=== PATIENT | female | born 1995 | race Caucasian/White ===

== ENCOUNTER 2018-04-11 08:07 | Emergency (ER) | payer OTHER ==
--- NOTE | 2018-04-11 09:48 | ED Physician Documentation ---
PD HPI HEADACHE - Stated complaint Stated Complaint: HEADACHE - Chief complaint Chief Complaint: Neuro - History obtained from History obtained from: Patient, Family - History of Present Illness Timing - onset: Yesterday Timing - onset during: Rest Timing - duration: Days (1) Timing - details: Gradual onset, Still present Location: Right Quality: Throbbing, Aching Associated symptoms: Stiff neck, Nausea, Eye pain, Other (ringing in the right ear and sensitivity to the skin of the scalp). No: Fever, Weakness, Numbness, Syncope, Seizure, Vision changes Improved by: Rest, Quiet, Meds Worsened by: Light, Noise, Moving Contributing factors: No: Anticoagulated Similar symptoms before: Has not had sx before Recently seen: Other - Additional information Additional information: 22-year-old female who is 12 weeks has developed a headache yesterday on the right side of her head. She is complaining of some ringing in the right ear and pain in the right side of the head which appears to be emanating from her neck on the right side. She does have an area at the insertion of the trapezius into the occiput of tenderness. She has some relief with the use of Tylenol but the headache is persisted. She states that she has had an ultrasound done with this and she is seeking care in [place]. She has had a reconstructive surgery on the right ear previously she has had a number of infections she does not feel that the symptoms are anything like infection. Review of Systems Constitutional: denies: Fever, Chills, Myalgias, Fatigue, Sweats Eyes: denies: Decreased vision Ears: reports: Tinnitus/ringing. denies: Ear pain Nose: denies: Rhinorrhea / runny nose, Congestion Throat: denies: Sore throat Cardiac: denies: Chest pain / pressure, Palpitations Respiratory: denies: Dyspnea, Cough GI: reports: Nausea. denies: Abdominal Pain, Vomiting, Constipation, Diarrhea : denies: Dysuria, Frequency Skin: denies: Rash Musculoskeletal: reports: Neck pain. denies: Back pain, Extremity pain Neurologic: reports: Headache. denies: Generalized weakness, Focal weakness, Numbness, Head injury, LOC PD PAST MEDICAL HISTORY - Past Medical History Cardiovascular: None Respiratory: None Endocrine/Autoimmune: None GI: None SPECIAL SERVICE REPRESENTATIVE: None : None HEENT: None Psych: None Musculoskeletal: None Derm: None - Past Surgical History Past Surgical History: Yes General: Appendectomy HEENT: Myringotomy (tubes) - Present Medications Home Medications: Ambulatory Orders Medication Instructions Recorded Confirmed Pnv95/Ferrous Fumarate/FA 1 tab PO DAILY 08/27/14 08/27/14 [ Tablet] Fluticasone [Flonase] 1 sprays PATRICIA BID PRN #1 bottle 04/30/16 HYDROcod/ACETAM 5/325 [Mcdavid 5/325] 1 - 2 ea PO Q6H PRN #15 tablet 04/11/18 - Allergies Allergies/Adverse Reactions: Allergies Allergy/AdvReac Type Severity Reaction Status Date / Time No Known Drug Allergies Allergy Verified 04/30/16 04:14 - Social History Does the pt smoke?: No Smoking Status: Never smoker Does the pt drink ETOH?: No Does the pt have substance abuse?: No - Immunizations Immunizations are current?: Yes - POLST Patient has POLST: No PD ED PE NORMAL - Vitals Vital signs reviewed: Yes (normal ) - General General: Alert and oriented X 3, No acute distress, Well developed/nourished - HEENT HEENT: Atraumatic, PERRL, EOMI, Other (There is extensive R tympanosclerosis without evidence of inflamation to the TM. The left is clear with less scarring. ) - Neck Neck: Supple, no meningeal sign, No bony TTP, Other (There is point tenderness and dense spasm to the trapezius at the insertion to the occiput on the right side. massage of this area improves symptoms ) - Cardiac Cardiac: RRR, No murmur - Respiratory Respiratory: No respiratory distress, Clear bilaterally - Abdomen Abdomen: Soft, Non tender - Back Back: No CVA TTP, No spinal TTP - Derm Derm: Normal color, Warm and dry, No rash - Extremities Extremities: No deformity, No edema - Neuro Neuro: Alert and oriented X 3, belly dancer 2-12 intact, No motor deficit, No sensory deficit, Normal speech Eye Opening: Spontaneous Motor: Obeys Commands Verbal: Oriented GCS Score: 15 - Psych Psych: Normal mood, Normal affect Results - Vitals Vitals: Vital Signs - 24 hr 04/11/18 04/11/18 08:25 10:31 Temperature 36.3 C L Heart Rate 81 78 Respiratory 16 14 Rate Blood Pressure 95/62 105/65 O2 Saturation 98 99 Oxygen O2 Source Room air - Labs Labs: Laboratory Tests 04/11/18 10:15 Urine Color YELLOW Urine Clarity CLEAR Urine pH 8.0 H Ur Specific [place] 1.010 Urine Protein NEGATIVE Urine Glucose (UA) NEGATIVE Urine Ketones NEGATIVE Urine Occult Blood NEGATIVE Urine Nitrite NEGATIVE Urine Bilirubin NEGATIVE Urine Urobilinogen 0.2 (NORMAL) Ur Leukocyte Esterase NEGATIVE Ur Microscopic Review NOT INDICATED Urine Culture Comments NOT INDICATED PD MEDICAL DECISION MAKING - ED course Complexity details: reviewed results, re-evaluated patient, considered differential, d/w patient, d/w family ED course: 22-year-old female with a headache that appears to be related to the greater occipital nerve on the right side has significant spasm of the trapezius. She is 12 weeks and conservative therapy is indicated. - Sepsis Event Vital Signs: Vital Signs - 24 hr 04/11/18 04/11/18 08:25 10:31 Temperature 36.3 C L Heart Rate 81 78 Respiratory 16 14 Rate Blood Pressure 95/62 105/65 O2 Saturation 98 99 Oxygen O2 Source Room air Departure - Departure Disposition: 01 Home, Self Care Clinical Impression: Tension headache Condition: Stable Instructions: ED Headache Tension Follow-Up: [facility] [Provider Group] Prescriptions: HYDROcod/ACETAM 5/325 [Mcdavid 5/325] 1 - 2 ea PO Q6H PRN #15 tablet PRN Reason: Pain Comments: Today it appears your headache is originating from the right side of your neck where the trapezius inserts into the occiput. Massaging anything to do relaxing the muscle will help with this headache. Use the pain medication as needed and when you are taking that do not take additional Tylenol. Discharge Date/Time: 04/11/18 10:32
[2018-04-11 10:19] LABS: BILIRUBIN,URINE NEGATIVE (NEGATIVE); GLUCOSE, URINE (UA) NEGATIVE (NEGATIVE); KETONES,URINE (UA) NEGATIVE (NEGATIVE); LEUKOCYTE ESTERASE, URINE NEGATIVE (NEGATIVE); NITRITE,URINE NEGATIVE (NEGATIVE); OCCULT BLOOD,URINE NEGATIVE (NEGATIVE); PROTEIN,URINE NEGATIVE (NEGATIVE); UROBILINOGEN,URINE 0.2 (NORMAL) E.U./dL (NORMAL)
[2018-04-11 10:21] LABS: CLARITY,URINE CLEAR (CLEAR)
[2018-04-11 10:32] VITALS: BP 105/65
== END 2018-04-11 10:32 | disposition home or self-care (01) ==
LOC: ED 08:07
DX: O26.891 Other specified pregnancy related conditions, first trimester (principal); G44.209 Tension-type headache, unspecified, not intractable; Z3A.12 12 weeks gestation of pregnancy
CPT/HCPCS: 81001; 81003; 87086; 99283

== ENCOUNTER 2018-04-28 08:00 | Outpatient (CLI) | payer OTHER ==
[2018-04-28 16:29] LABS: MUDS CUTOFF CONCENTRATIONS CUTOFF CONC BELOW:
[2018-04-28 16:51] LABS: AMPHETAMINE SCREEN,URINE NEGATIVE (NEGATIVE); BENZODIAZEPINES SCREEN, URINE NEGATIVE (NEGATIVE); COCAINE SCREEN URINE NEGATIVE (NEGATIVE); METHADONE SCREEN, URINE NEGATIVE (NEGATIVE); METHAMPHETAMINES SCREEN, URINE NEGATIVE (NEGATIVE); OPIATE SCREEN, URINE NEGATIVE (NEGATIVE); OXYCODONE SCREEN, URINE NEGATIVE (NEGATIVE); TRICYCLIC ANTIDEPRESSANT,URINE NEGATIVE (NEGATIVE)
[2018-04-28 16:52] LABS: PROPOXYPHENE SCREEN, URINE NEGATIVE (NEGATIVE)
== END 2018-04-28 08:01 | disposition home or self-care (01) ==
LOC: LAB.R 08:00
PROVIDERS: ATTEND Nurse Practitioner Obstetrics & Gynecology
DX: Z36.9 Encounter for antenatal screening, unspecified (principal)
CPT/HCPCS: 80306; 87491; 87591

== ENCOUNTER 2018-04-28 13:15 | Outpatient (CLI) | payer OTHER ==
[2018-04-28 19:56] LABS: BILIRUBIN,URINE NEGATIVE (NEGATIVE); GLUCOSE, URINE (UA) NEGATIVE (NEGATIVE); KETONES,URINE (UA) NEGATIVE (NEGATIVE); LEUKOCYTE ESTERASE, URINE NEGATIVE (NEGATIVE); NITRITE,URINE NEGATIVE (NEGATIVE); OCCULT BLOOD,URINE NEGATIVE (NEGATIVE); PH,URINE 6.5 PH (5.0-7.5); PROTEIN,URINE NEGATIVE (NEGATIVE); UROBILINOGEN,URINE 0.2 (NORMAL) E.U./dL (NORMAL)
[2018-04-28 20:01] LABS: BASOPHILS % (AUTO) 0.3 %; EOSINOPHILS % (AUTO) 0.5 %; HGB - HEMOGLOBIN 12.9 g/dL (12.0-16.0); LYMPHOCYTES # (AUTO) 1.5 10^3/uL (1.5-3.5); LYMPHOCYTES % (AUTO) 19.2 %; MEAN CORPUSCULAR HEMOGLOBIN 31.1 pg (27.0-31.0); MEAN CORPUSCULAR HGB CONC 34.8 g/dL (32.0-36.0); MEAN CORPUSCULAR VOLUME 89.5 fL (81.0-99.0); MEAN PLATELET VOLUME 10.5 fL (7.9-10.8); MONOCYTES # (AUTO) 0.4 10^3/uL (0.0-1.0); MONOCYTES % (AUTO) 5.1 %; NEUTROPHILS % (AUTO) 74.9 %; PLT - PLATELET COUNT 217 10^3/uL (130-450); RED BLOOD COUNT 4.15 10^6/uL (4.20-5.40); RED CELL DISTRIBUTION WIDTH 13.6 % (12.0-15.0)
[2018-04-28 20:24] LABS: BACTERIA,URINE None Seen /HPF (None Seen); CLARITY,URINE CLEAR (CLEAR); RBC,URINE None Seen /HPF (0-5); SQUAMOUS EPITHELIAL CELL,UR FEW Squamous (<= Few)
[2018-04-30 13:38] LABS: HEPATITIS B SURFACE ANTIGEN NON-REACTIVE (NON-REACTIVE); HEPATITIS C ANTIBODY NON-REACTIVE (NON-REACTIVE)
[2018-04-30 14:41] LABS: HIV AG/AB 4TH GEN NON-REACTIVE (NON-REACTIVE)
== END 2018-04-28 13:16 | disposition home or self-care (01) ==
LOC: LAB.WCP 13:15
PROVIDERS: ATTEND Nurse Practitioner Obstetrics & Gynecology
DX: Z36.9 Encounter for antenatal screening, unspecified (principal)
CPT/HCPCS: 36415; 80306; 81001; 81599; 85025; 86592; 86762; 86803; 86850; 86900; 86901; 87340; 87389; 87491; 87591

== ENCOUNTER 2018-06-17 13:10 | Outpatient (CLI) | payer OTHER ==
--- NOTE | 2018-06-17 16:10 | Ultrasound Report ---
Reason: ENCTR FOR SCREENING Procedure Date: 06/17/2018 Accession Number: [id number] / [id number] Procedure: US - OB Detailed Eval CPT Code: FULL RESULT: EXAM: COMPLETE OBSTETRICAL ULTRASOUND EXAM DATE: 06/17/2018 03:34 PM. CLINICAL HISTORY: anatomic survey. COMPARISON: None. TECHNIQUE: Real-time sonographic evaluation of the fetus performed by the bag repairer. Multiple sales representative supervisor static images were saved for review. DATING: Established EGA 22 weeks 2 days with PEGGY 10/19/2018 based on obstetric provider supplied information. EGA 22 weeks 0 days with PEGGY 10/21/2018 based on the current ultrasound. GENERAL EVALUATION Abdi . Cardiac activity: 154 bpm. movement: Visualized. Presentation: Variable. Placenta: Anterior position. No evidence for previa. Umbilical cord: 3 vessel cord. Central placental cord origin. Amniotic fluid: ANTWAN 18.9 MVP 5.8 cm. BIOMETRY Bi-Parietal Diameter (BPD): 5.3 cm, 22 weeks 0 days. Head Circumference (HC): 19.7 cm, 21 weeks 6 days. Abdominal Circumference (AC): 18.3 cm, 23 weeks 0 days. Femur Length (FL): 3.7 cm, 21 weeks 4 days. Estimated Weight: 498 g, 41st percentile for 22 weeks 2 days. ANATOMY The intracranial structures, profile, face/nose/lips, spine, 4 chamber heart and outflow tracts, stomach, abdominal wall and cord insertion, diaphragm, kidneys, bladder, and extremities were visualized and demonstrate no abnormality. MATERNAL STRUCTURES Uterus: Unremarkable. Cervix: Long and closed. Transabdominal length 4.4 cm. Right ovary/adnexa: Unremarkable. Left ovary/adnexa: Unremarkable. Free fluid: None. IMPRESSION: 1. Abdi live intrauterine with gestational age 22 weeks 2 days based on provider established due date. 2. Estimated weight is within expected limits for assigned dating. 3. Normal anatomic survey. No anatomic abnormalities are detected at this time. RADIA
== END 2018-06-17 13:11 | disposition home or self-care (01) ==
LOC: DI 13:10
PROVIDERS: ATTEND Nurse Practitioner Obstetrics & Gynecology
DX: Z36.9 Encounter for antenatal screening, unspecified (principal); Z3A.22 22 weeks gestation of pregnancy
CPT/HCPCS: 76811

== ENCOUNTER 2018-06-20 21:45 | Outpatient (CLI) | payer OTHER ==
[2018-06-20 22:03] VITALS: BP 115/72
== END 2018-06-20 22:51 | disposition home or self-care (01) ==
LOC: WFO 21:45 → FBP 21:48 → WFO 22:51
PROVIDERS: ATTEND Nurse Practitioner Obstetrics & Gynecology
DX: O99.612 Diseases of the digestive system complicating pregnancy, second trimester (principal); R19.7 Diarrhea, unspecified; O99.89 Other specified diseases and conditions complicating pregnancy, childbirth and the puerperium; Z3A.22 22 weeks gestation of pregnancy
CPT/HCPCS: 99212

== ENCOUNTER 2018-07-24 12:30 | Outpatient (CLI) | payer OTHER ==
[2018-07-24 14:02] LABS: HGB - HEMOGLOBIN 11.4 g/dL (12.0-16.0); MEAN CORPUSCULAR HEMOGLOBIN 31.9 pg (27.0-31.0); MEAN CORPUSCULAR HGB CONC 35.4 g/dL (32.0-36.0); MEAN PLATELET VOLUME 9.4 fL (7.9-10.8); RED BLOOD COUNT 3.57 10^6/uL (4.20-5.40); RED CELL DISTRIBUTION WIDTH 13.3 % (12.0-15.0); WHITE BLOOD COUNT 9.6 x10^3/uL (4.8-10.8)
== END 2018-07-24 12:31 | disposition home or self-care (01) ==
LOC: LAB 12:30
PROVIDERS: ATTEND Registered Nurse
DX: Z33.1 Pregnant state, incidental (principal)
CPT/HCPCS: 36415; 82950; 85027; 86850

== ENCOUNTER 2018-08-03 08:00 | Outpatient (CLI) | payer OTHER | END 2018-08-03 08:01 | disposition home or self-care (01) | LOC: LAB 08:00 | PROVIDERS: ATTEND Nurse Practitioner Obstetrics & Gynecology | DX: O99.810 Abnormal glucose complicating pregnancy (principal) | CPT/HCPCS: 36415; 82950; 82951; 82952; 85027; 86850 ==

== ENCOUNTER 2018-08-12 08:00 | Outpatient (CLI) | payer OTHER ==
[2018-08-12 19:20] LABS: BASOPHILS % (AUTO) 0.3 %; EOSINOPHILS # (AUTO) 0.1 10^3/uL (0.0-0.7); EOSINOPHILS % (AUTO) 0.7 %; HGB - HEMOGLOBIN 11.2 g/dL (12.0-16.0); LYMPHOCYTES # (AUTO) 1.9 10^3/uL (1.5-3.5); LYMPHOCYTES % (AUTO) 17.4 %; MEAN CORPUSCULAR HEMOGLOBIN 30.2 pg (27.0-31.0); MEAN CORPUSCULAR HGB CONC 33.1 g/dL (32.0-36.0); MEAN CORPUSCULAR VOLUME 91.3 fL (81.0-99.0); MEAN PLATELET VOLUME 9.9 fL (7.9-10.8); MONOCYTES # (AUTO) 0.6 10^3/uL (0.0-1.0); MONOCYTES % (AUTO) 5.1 %; NEUTROPHILS # (AUTO) 8.4 10^3/uL (1.5-6.6); NEUTROPHILS % (AUTO) 76.5 %; PLT - PLATELET COUNT 279 10^3/uL (130-450); RED CELL DISTRIBUTION WIDTH 13.4 % (12.0-15.0)
== END 2018-08-12 23:59 | disposition home or self-care (01) ==
LOC: LAB.N 08:00
PROVIDERS: ATTEND Registered Nurse
DX: R23.8 Other skin changes (principal)
CPT/HCPCS: 36415; 85025

== ENCOUNTER 2018-09-11 15:14 | Outpatient (CLI) | payer OTHER ==
[2018-09-11] MEDS ORDERED: LACTATED RINGERS 1,000 ML IV ONE (15:30)
[2018-09-11] MEDS ORDERED: SODIUM CHLORIDE FLUSH 0.9% 10 ML SYRINGE ONE (15:47)
[2018-09-11 15:48] VITALS: BP 119/65
[2018-09-12 13:11] LABS: HEPATITIS C ANTIBODY NON-REACTIVE (NON-REACTIVE)
[2018-09-12 14:57] LABS: HIV AG/AB 4TH GEN NON-REACTIVE (NON-REACTIVE)
[2018-09-15 13:40] LABS: HSV 2 IGG TYPE SPECIFIC AB <0.90 index
== END 2018-09-11 17:10 | disposition home or self-care (01) ==
LOC: WFO 15:14 → FBP 15:16 → WFO 17:10
PROVIDERS: ATTEND Nurse Practitioner Obstetrics & Gynecology
DX: Z36.89 Encounter for other specified antenatal screening (principal); N73.2 Unspecified parametritis and pelvic cellulitis; N76.0 Acute vaginitis; Z36.85 Encounter for antenatal screening for Streptococcus B
CPT/HCPCS: 36415; 59025; 81599; 86695; 86696; 86803; 87081; 87389; 87480; 87510; 87660; 87797; J7120

== ENCOUNTER 2018-09-11 15:30 | Outpatient (CLI) | payer OTHER | END 2018-09-11 23:59 | disposition home or self-care (01) | LOC: LAB.R 15:30 | PROVIDERS: ATTEND Nurse Practitioner Obstetrics & Gynecology | DX: N76.0 Acute vaginitis (principal); Z36.85 Encounter for antenatal screening for Streptococcus B | CPT/HCPCS: 87081; 87480; 87510; 87660; 87797 ==

== ENCOUNTER 2018-09-20 08:32 | Outpatient (CLI) | payer OTHER ==
[2018-09-20 09:00] VITALS: BP 111/71
[2018-09-20] MEDS ORDERED: LACTATED RINGERS 1,000 ML IV ONE (09:29)
[2018-09-20] MEDS ORDERED: SODIUM CHLORIDE FLUSH 0.9% 10 ML SYRINGE ONE (09:40)
[2018-09-20 09:46] LABS: BILIRUBIN,URINE NEGATIVE (NEGATIVE); GLUCOSE, URINE (UA) NEGATIVE (NEGATIVE); KETONES,URINE (UA) 15 mg/dL (NEGATIVE); LEUKOCYTE ESTERASE, URINE SMALL (NEGATIVE); NITRITE,URINE NEGATIVE (NEGATIVE); OCCULT BLOOD,URINE NEGATIVE (NEGATIVE); PROTEIN,URINE NEGATIVE (NEGATIVE); UROBILINOGEN,URINE 0.2 (NORMAL) E.U./dL (NORMAL)
[2018-09-20 09:48] LABS: CLARITY,URINE HAZY (CLEAR)
[2018-09-20 09:54] LABS: RBC,URINE 0-5 /HPF (0-5); SQUAMOUS EPITHELIAL CELL,UR MOD Squamous (<= Few)
[2018-09-20 09:55] LABS: BACTERIA,URINE Few /HPF (None Seen)
--- NOTE | 2018-09-20 12:17 | Ultrasound Report ---
Reason: Non-reactive NST Procedure Date: 09/20/2018 Accession Number: [id number] / [id number] Procedure: US - OB Biophysical Profile CPT Code: FULL RESULT: EXAM: BIOPHYSICAL PROFILE EXAM DATE: 09/20/2018 10:17 AM. CLINICAL HISTORY: Nonreactive NST. COMPARISON: OB DETAILED EVAL 06/17/2018 1:52 PM. TECHNIQUE: Real-time sonographic evaluation of the fetus performed by the classified advertising manager. Multiple apprenticeship training representative static images were saved for review. DATING: Established EGA 35 weeks, 4 days with PEGGY 10/21/2018. GENERAL EVALUATION Abdi . Cardiac activity: 135 bpm. movement: Visualized. Presentation: Cephalic. Placenta: Anterior position. No evidence for previa or abruption. Amniotic fluid: Normal. ANTWAN 18.7 cm. MVP 6.1 cm. BIOPHYSICAL PROFILE Breathing = 2 Movement = 2 Tone = 2 Amniotic Fluid = 2 Total 03/18 IMPRESSION: 1. Abdi live intrauterine with gestational age 35 weeks, 4 days based on established PEGGY. 2. Biophysical profile score 8 of 8. 3. ANTWAN, normal, 18.7 cm. RADIA
== END 2018-09-20 12:25 | disposition home or self-care (01) ==
LOC: WFO 08:32 → FBP 08:33 → WFO 12:25
PROVIDERS: ATTEND Nurse Practitioner Obstetrics & Gynecology
DX: O47.03 False labor before 37 completed weeks of gestation, third trimester (principal); Z3A.35 35 weeks gestation of pregnancy
CPT/HCPCS: 76819; 81001; 87086; 99214

== ENCOUNTER 2018-10-03 15:45 | Outpatient (CLI) | payer OTHER ==
[2018-10-03 16:00] VITALS: BP 122/75
--- NOTE | 2018-10-04 11:29 | PROCEDURE REPORT ---
Hospitalist Procedure Note - Procedure Note Procedure Note: NST: Decreased movement/false labor NST reactive. FHR baseline 120s, moderate variability, + accels, no decels. Pt is able to feel infant move since her arrival here. Contractions palpate mild every 1-4 minutes with soft resting tone. SVE unchanged from exam although nurse states the fetus feels vertex without face presentation. pt released home with precautions.
== END 2018-10-03 16:30 | disposition home or self-care (01) ==
LOC: WFO 15:45 → FBP 15:47 → WFO 16:30
PROVIDERS: ATTEND Nurse Practitioner Obstetrics & Gynecology
DX: O36.8190 Decreased fetal movements, unspecified trimester, not applicable or unspecified (principal); O47.9 False labor, unspecified
CPT/HCPCS: 59025

== ENCOUNTER 2018-10-09 18:13 | Outpatient (CLI) | payer OTHER ==
[2018-10-09 18:36] VITALS: BP 112/62
[2018-10-09 19:36] LABS: RUPTURE OF MEMBRANES PLUS POSITIVE (NEGATIVE)
--- NOTE | 2018-10-09 20:45 | PROVIDER PROGRESS NOTE ---
Subjective - Prog Note Date Prog Note Date: 10/09/18 (RESEARCH STUDY ASSISTANT) Prog Note Time: 20:35 - Subjective Subjective: L&D UPS DRIVER: Patient is 38 4/7 weeks with c/o increased vaginal discharge over last 3 days, mucus in appearance at time. No large gush of fluid or heavy vaginal bleeding. ROM test POSITIVE. VSS/AF NST Category I with occasional contraction. SSE by me: No pooling, Negative valsalva test, Negative Nitrazine test Cx 2//-VTX/BLT with head ballotable and definite forebag easily palpable with LOF during cervical exam. ABD US by me with AF in all 4 quandrants, VTX, ANTWAN = 13.88 cm with smallest pocket 1.94 cm and largest 5.42 cm Sample of vaginal discharge placed on slide by RN followed by a cover slide by mistake. I was not able to read slide for ferning as a result despite attempt to do so with microscope. Oversight explained to patient and FOB and recommended and requested repeat exam and obtaining of sample, but she and FOB refused, satisfied with otherwise negative provider evaluation by me. I am confident based on my exam that patient does NOT have ROM despite false POS ROM test. This is not the first time in recent weeks that a ROM test has been falsely POS or NEG. In fact, 1 week ago another patient who was grossly ruptured had a NEG ROM test. This issue is being addressed through appropriate channels. I am very confident despite no ferning slide that this patient does not have SROM. Couple satisfied with evaluation and assessment as well. Patient has OB appointment in 3 days. Labor and SROM precautions given. Objective - Vital Signs/Intake & Output Vital Signs: Vital Signs x48h Temp Pulse Resp BP 10/09/18 18:35 36.5 C 77 16 112/62 - Lab Results Other Labs: Lab Results x24hrs 10/09/18 Range/Units 19:10 Membranes Rupture POSITIVE A (NEGATIVE) Assessment/Plan - Problem List (1) Term Impression: 38+ weeks gestation with NO SROM (False POS Lab ROM Test) Home with labor and FKC and SROM precautions. F/U routine ob, sooner prn.
== END 2018-10-09 20:37 | disposition home or self-care (01) ==
LOC: WFO 18:13 → FBP 18:16 → WFO 20:37
PROVIDERS: ATTEND Obstetrics & Gynecology
DX: Z34.83 Encounter for supervision of other normal pregnancy, third trimester (principal)
CPT/HCPCS: 84112; 99213

== ENCOUNTER 2018-10-12 10:33 | Inpatient (IN) | payer OTHER ==
[2018-10-12 10:58] LABS: RUPTURE OF MEMBRANES PLUS POSITIVE (NEGATIVE)
[2018-10-12] MEDS ORDERED: SODIUM CHLORIDE FLUSH 0.9% 10 ML SYRINGE IVP PRN (11:02)
[2018-10-12] MEDS ORDERED: PENICILLIN G POTASSIUM 5,000,000 UNIT in SODIUM CHLORIDE 0.9% MINIBAG 100 ML IV ONE (11:02)
[2018-10-12] MEDS ORDERED: OXYTOCIN/SODIUM CHLORIDE 500 ML IV ONE (11:18)
[2018-10-12] MEDS ORDERED: LIDOCAINE-MPF 1% 30 ML VIAL ONE (11:18)
[2018-10-12] MEDS ORDERED: miSOPROStol 200 MCG TABLET ONE (11:19)
[2018-10-12] MEDS: LACTATED RINGERS 1,000 ML IV SCH (12:11)
[2018-10-12 12:18] LABS: BASOPHILS % (AUTO) 0.4 %; EOSINOPHILS % (AUTO) 0.4 %; HGB - HEMOGLOBIN 10.5 g/dL (12.0-16.0); LYMPHOCYTES # (AUTO) 1.7 10^3/uL (1.5-3.5); LYMPHOCYTES % (AUTO) 17.9 %; MEAN CORPUSCULAR HEMOGLOBIN 27.5 pg (27.0-31.0); MEAN CORPUSCULAR HGB CONC 33.7 g/dL (32.0-36.0); MEAN CORPUSCULAR VOLUME 81.5 fL (81.0-99.0); MEAN PLATELET VOLUME 9.7 fL (7.9-10.8); MONOCYTES # (AUTO) 0.7 10^3/uL (0.0-1.0); MONOCYTES % (AUTO) 7.2 %; NEUTROPHILS # (AUTO) 7.2 10^3/uL (1.5-6.6); NEUTROPHILS % (AUTO) 74.1 %; PLT - PLATELET COUNT 237 10^3/uL (130-450); RED BLOOD COUNT 3.82 10^6/uL (4.20-5.40); RED CELL DISTRIBUTION WIDTH 14.7 % (12.0-15.0); WHITE BLOOD COUNT 9.7 x10^3/uL (4.8-10.8)
[2018-10-12] MEDS: miSOPROStol 100 MCG TABLET BC SCH (16:11)
[2018-10-12] MEDS: PENICILLIN G POTASSIUM 2,500,000 UNIT in SODIUM CHLORIDE 0.9% 100ML 100 ML IV SCH ×2 (16:16→20:15)
--- NOTE | 2018-10-12 17:14 | HISTORY & PHYSICAL EXAMINATION ---
Admit History - Visit Reason Visit Reason: Contractions, Membranes rupture - : 3 Parity: 1 Premature: 0 Ectopic: 0 : 1 Care: positive: [facility] Risk/History: positive: None Complications This : positive: None Smoking Status: Never smoker - Mother's Labs Mother's Blood Type: positive: A Mother's RH: positive: Positive GBS: positive: Group B Strep Positive Rubella Status: positive: Immune Meds/Allgy - Home Medications Home Medications: Ambulatory Orders Medication Instructions Recorded Confirmed Pnv95/Ferrous Fumarate/FA 1 tab PO DAILY 08/27/14 08/27/14 [ Tablet] Fluticasone [Flonase] 1 sprays PATRICIA BID PRN #1 bottle 04/30/16 HYDROcod/ACETAM 5/325 [[place] 5/325] 1 - 2 ea PO Q6H PRN #15 tablet 04/11/18 - Allergies Allergies/Adverse Reactions: Allergies Allergy/AdvReac Type Severity Reaction Status Date / Time No Known Drug Allergies Allergy Verified 04/30/16 04:14 Review of Systems - Constitutional Constitutional: denies: Fatigue, Fever, Chills, Malaise - Eyes Eyes: denies: Blurred vision, Spots in vision, Dipolpia - Cardiovascular Cariovascular: denies: Irregular heart rate, Palpitations, Chest pain, Edema - Respiratory Respiratory: denies: Cough, Sputum production - Gastrointestinal Gastrointestinal: denies: Abdominal pain, Abdominal distention, Constipation, Diarrhea, Change in bowel habits, Nausea, Vomiting - Genitourinary Genitourinary: denies: Dysuria - Integumentary Integumentary: denies: Rash, Pruritis - Psychiatric Psychiatric: reports: Anxiety. denies: Depression - Hematologic/Lymphatic Hematologic/Lymphatic: reports: Anemia Physical - Abdominal Exam Vital Signs: Temp Pulse Resp BP Pulse Ox 36.8 C 81 20 136/83 H 99 10/12/18 11:00 10/12/18 11:00 10/12/18 11:00 10/12/18 11:00 10/12/18 11:00 Contraction Frequency (min/apart): 2-4 Contraction Intensity: positive: Mild to moderate Uterine Resting Tone: positive: Soft - Monitoring Heart Rate Baseline: 135 Strip Review: positive: Category I - Presentation Presentation: positive: Vertex - Vaginal Exam Membranes: positive: Membranes ruptured Dilation (in cm): 3 Effacement (%): 50 Station: positive: -2 Cervical Position: positive: Midposition - Speculum Exam Speculum Exam Performed: positive: No Findings: positive: Gross leak Plan for Labor - Plan For Labor I expect patient to be DC'd or transferred within 96 hours.: Yes Plan for Labor: HPI: Angela is a 22yo @ 39.0wks gestation who presented to [facility] for routine visit with complaints of persistant vaginal leakage of clear fluid which started 10/09/2018. At that time she presented to [facility] and was evaluated by the director mission physician. She was noted to have ROM+ which was POSITIVE, with negative pooling, negative nitrizine, and inconclusive fern test. An ANTWAN was performed and was WNL per patient. She was then released home. She reports intermittent spotting and increased vaginal discharge in addition to leakage of fluid. She reports intermittent uterine contractions and +FM. SVE 3/70/-2, midposition, soft and vertex. Palpable forebag of amniotic fluid present - leakage of fluid apparently higher than presenting forebag. At previous visit her SVE revealed infant in face presentation. She was given instructions for optimal positioning which she has been performing daily and there is a clearly vertex presentation on examination today. She was noted to have leakage of moderate amount of clear vaginal fluid today. Her has been complicated by increased anxiety for which she was started on sertraline 100mg with improvement. She has also been intermittently taking 50mg hydroxyzine for night time anxiety and subsequent insomnia. She is noted to be GBS positive and will receive penicillin for prophylaxis. She is also noted to be non-immune to Rubella and will plan to receive MMR prior to discharge. Dating criteria: LMP 01/12/2018 c/w first trimester ultrasound First trimester U/S @ 10wks gestation - agrees OB History: G1: 01/24/2015 @ 37wks gestation of viable male infant named Joey. 6 hour labor. Delivery complicated by lung infection secondary to prolonged rupture of membranes. G2: 03/25/2017 SAB @ 6wks gestation G3: current - uncomplicated Current medications: Vistaril 50mg 1 tab PO qhs PRN anxiety/insomnia Sertraline 100mg PO daily Ranitidine 150mg 1 tab PO PRN GERD PNV Allergies: NKDA PMHx: Anxiety Surgical Hx: none Social Hx: never smoker, No ETOH or IVDA. Candelario, son Joey. Expecting baby boy Georgie. Family Hx: labs: Hgb 12.9, Hct 37.1 PLT 217 A pos, antibody neg Rubella equivocal Hep B neg Hep C non-reactive HIV neg RPR non-reactive GC/CT neg UTOX neg 28wk labs: 1 hour GTT 153 3 hour GTT WNL: 84; 145; 131; 95 Hgb 11.4 36wk labs: GBS POSITIVE Hep C neg HIV neg RPR neg HSV-1 pos; HSV-2 neg Immunizations: Tdap 08/05/2018 Ultrasound: 06/17/2018 FAS WNL. Anterior placenta, no previa. Size c/w dating. 3VC. Physical Exam: PERRLA Heart RRR w/o M/G/R Lungs CTAB Normocephalic, atraumatic Abdomen gravid, soft and nontender SVE 3/70/-2, midposition, soft, vertex. Moderate leakage of clear vaginal fluid - ROM+ positive. Bilateral LE's no edema. Mood is anxious. Assessment: 22yo @ 39.0wks gestation by L=10wk U/S GBS positive ROM+ positive with leakage of clear vaginal fluid FHT Category I Plan: Admit for active management. Administration of penicillin for GBS prophylaxis per protocol prior to initiation of IOL. Prolonged rupture of membranes likely. Anticipate spontaneous vaginal delivery. Plan rupture of forebag of amniotic membranes per patient request. If contractions do not increase in frequency and intensity in 1 hour, will give misoprostol 50mcg BC q 4 hours. Pt and family verbalized understanding and agree to above plan. They deny further questions or concerns at this time.
[2018-10-12] MEDS ORDERED: WITCH HAZEL/GLYCERIN 1 EACH MED..PAD TOP PRN (21:47)
[2018-10-12] MEDS ORDERED: HYDROCORTISONE 1% CREAM 28 GM TUBE PR PRN (21:47)
--- NOTE | 2018-10-12 22:21 | DELIVERY NOTE ---
Delivery Note - Labor Labor: positive: Other - Infant Delivery Method Delivery Method: positive: Spontaneous vaginal delivery - Presentation Presentation: positive: Vertex, CEDRIC - right occiput anterior - Nuchal Cord Nuchal Cord: positive: Present, Reduced - Amniotic Fluid Description Amniotic Fluid Description: positive: Clear - Episiotomy Type Episiotomy Type: positive: None - Laceration Laceration: positive: None - Delivery Outcome Delivery Outcome: positive: Livebirth - [place]: positive: Placed in direct skin contact with mother, Bulb syringe, Stimulated, Warmed, [place] used sex: positive: Male - Cord Cord: positive: 3 vessels - Placenta Placenta: positive: Intact, Spontaneous - Estimated Blood Loss Estimated Blood Loss (in cc): 150 - Post Delivery Events Post Delivery Events: positive: No post delivery events - Delivery Comments (Free Text/Narrative) Delivery Comments (Free Text/Narrative): Labor: This 22yo @ 39.0wks gestation presents today at 1000 with complaints of persistent vaginal leakage of fluid since Friday10/09/2018 which she was evaluated by on- call physician, ROM+ was positive, and she was released home with precautions. She was directed to present to [facility] following her routine office visit today. Her ROM+ was positive and she was admitted to L&D for active management. SVE 3/70/-2 and vertex. FHR pattern demonstrated category I tracing throughout labor. She was treated per protocol for GBS prophylaxis with penicillin x 2.5 doses. Misoprostol 50mcg BC administered x 1 dose. AROM forebag at 182 and was noted to be a moderate amount of clear fluid. Patient progressed rapidly to complete dilation at 2042. head delivered by L&D RN and nuchal cord x 2 reduced followed immediately by CNM arrival to the bedside. Spontaneous vaginal delivery at 2050 on 10/12/2018. 's 7 and 8 at 1 and 5 min respectively. The was stimulated, dried, and placed skin to skin. Pitocin administered via IV for hemostasis. The umbilical cord was allowed to stop pulsating at which time it was doubly clamped by CNM and cut by FOB. Cord blood was obtained. Placenta delivered spontaneously and intact at 2056. 3VC. EBL 150mL. Uterine fundus firm and there is no excessive bleeding. The perineum, vagina, and cervix were inspected and found to be intact. Minor left labial superficial laceration was noted and left unrepaired secondary to adequate hemostasis. initiated. Family bonding well. Both mother and baby were left in stable condition.
[2018-10-12] MEDS: IBUPROFEN 800 MG TABLET PO SCH (23:45)
[2018-10-13] MEDS: ACETAMINOPHEN 500 MG TABLET PO SCH ×2 (05:00→07:06)
[2018-10-13] MEDS: IBUPROFEN 800 MG TABLET PO SCH ×3 (06:00→21:16)
[2018-10-13] MEDS: LACTATED RINGERS 1,000 ML IV SCH ×2 (07:05→07:07)
[2018-10-13] MEDS: miSOPROStol 100 MCG TABLET BC SCH ×3 (07:05→07:09)
[2018-10-13] MEDS: PENICILLIN G POTASSIUM 2,500,000 UNIT in SODIUM CHLORIDE 0.9% 100ML 100 ML IV SCH ×3 (07:06→07:26)
[2018-10-13] MEDS: DOCUSATE SODIUM 100 MG CAPSULE PO SCH ×2 (09:22→21:16)
--- NOTE | 2018-10-13 09:26 | PROVIDER PROGRESS NOTE ---
Subjective - Subjective Subjective: S: Bonding well with baby. with little difficulty. Some nipple soreness but overall doing well. Denies pain. Bleeding decreased and is light. Mood is good. supportive at the bedside. O: Heart RRR w/o M/G/R, lungs CTAB, abdomen soft and nontender with fundus firm at U. Bilateral LE's no edema. Perineum intact. A: 22yo -->P2 PPD #1 s/p TSVD of viable male over intact perineum GBS positive - adequately treated P: Continue routine care and medications. May discharge home this evening at 24 hours if space physicist discharges infant. Reviewed care and warning s/sx and when to present. Pt verbalized understanding and agrees to above plan. She denies further questions or concerns at this time. Objective - Vital Signs/Intake & Output Vital Signs: Vital Signs x48h Temp Pulse Resp BP Pulse Ox 10/13/18 06:00 36.8 C 71 20 116/55 L 96 10/13/18 04:22 36.6 C 69 16 122/66 99 Intake & Output: Intake & Output 10/10/18 10/11/18 10/12/18 10/13/18 23:59 23:59 23:59 23:59 Intake Total 2757.5 Balance 2757.5 - Lab Results Fish Bones: 10/12/18 12:00 Other Labs: Lab Results x24hrs 10/12/18 10/12/18 Range/Units 12:00 10:44 WBC 9.7 (4.8-10.8) x10^3/uL RBC 3.82 L (4.20-5.40) 10^6/uL Hgb 10.5 L (12.0-16.0) g/dL Hct 31.2 L (37.0-47.0) % MCV 81.5 (81.0-99.0) fL MCH 27.5 (27.0-31.0) pg MCHC 33.7 (32.0-36.0) g/dL RDW 14.7 (12.0-15.0) % Plt Count 237 (130-450) 10^3/uL MPV 9.7 (7.9-10.8) fL Neut # (Auto) 7.2 H (1.5-6.6) 10^3/uL Lymph # (Auto) 1.7 (1.5-3.5) 10^3/uL Gaines # (Auto) 0.7 (0.0-1.0) 10^3/uL Eos # (Auto) 0.0 (0.0-0.7) 10^3/uL Baso # (Auto) 0.0 (0.0-0.1) 10^3/uL Absolute Nucleated RBC 0.00 x10^3/uL Nucleated RBC % 0.0 /100WBC Membranes Rupture POSITIVE A (NEGATIVE)
[2018-10-13] MEDS ORDERED: MEASLES,MUMPS & RUBELLA VACC 0.5 ML VIAL SUBQ ONE (10:22)
[2018-10-14] MEDS: ACETAMINOPHEN 500 MG TABLET PO SCH (05:47)
[2018-10-14] MEDS: IBUPROFEN 800 MG TABLET PO SCH (05:48)
--- NOTE | 2018-10-14 08:06 | Discharge Plan ---
Discharge Plan Disposition: 01 Home, Self Care Condition: Good Diet: Regular Activity Restrictions: No Restrictions Shower Restrictions: No Driving Restrictions: No Weight Bearing: Full Weight No Smoking: If you smoke, Please STOP! Call for help. Follow-up with: Catie Judge CNM, ARNP [Provider Admit Priv/Credential] -
--- NOTE | 2018-10-14 08:10 | PROVIDER PROGRESS NOTE ---
Subjective - Subjective Subjective: FINAL PROGRESS NOTE: S: Bonding well with baby. without difficulty and pt states the baby turned a corner last night and has a deeper latch and is more enthusiastic about feeding. Bleeding decreased and is light. Denies pain. Anxious to go home today. O: Heart RRR w/o M/G/R, lungs CTAB, perineum intact, bilateral LE's no edema. A: 22yo -->P2 PPD#2 s/p TSVD P: Reviewed self care and warning s/sx. Encouraged vitamin while . Advised ibuprofen and tylenol OTC for pain management. Discharge home today on PPD#2. She intends to f/u with myself in 1 week for support visit. She denies further questions or concerns at this time. Objective - Vital Signs/Intake & Output Vital Signs: Vital Signs x48h Temp Pulse Resp BP Pulse Ox 10/14/18 04:15 36.8 C 79 16 111/64 100 Intake & Output: Intake & Output 10/11/18 10/12/18 10/13/18 10/14/18 23:59 23:59 23:59 23:59 Intake Total 2757.5 1360 Balance 2757.5 1360 - Lab Results Fish Bones: 10/12/18 12:00
[2018-10-14] MEDS: DOCUSATE SODIUM 100 MG CAPSULE PO SCH (08:52)
[2018-10-14 11:23] VITALS: BP 112/64
[2018-10-14] MEDS ORDERED: MEASLES,MUMPS & RUBELLA VACC 0.5 ML VIAL SUBQ ONE (13:00)
--- NOTE | 2018-10-14 16:10 | Labor Flowsheet ---
Labor Flowsheet Datetime Report Generated by CPN: 10/14/2018 16:10 Datetime: 10/14/2018 16:09 Pulse: 95 SpO2 (%): 99 LaborFlag: Labor Datetime: 10/14/2018 16:04 VITAL SIGNS NBP Sys/Nathalia/Mean (mmHg): 131 : 85 : 95 Datetime: 10/12/2018 22:00 Vital Sign Comments: ; unable to relax arm Datetime: 10/12/2018 20:51 UTERINE ACTIVITY Monitor Mode: External Quality: Strong Resting Tone (Palpate): Relaxed Contraction Comments: Poor tracing of contractions due to maternal movement ASSESSMENT A Monitor Mode: Telemetry FHR Baseline Rate : 135 Variability: Moderate 6-25 bpm Accelerations: 15X15 Decelerations: None Category: Category I Oxygen Method: Room Air STAGE 2 Stage 2 Comments: A Bauch, RN, delivered head and reduced loose nuchal cord x2; A Nu, CNM, arrive d and took over delivery of body Datetime: 10/12/2018 20:45 COMMUNICATION Communication: Call/Page Placed to Provider Provider Notified (Name): A Nu, CNM, DIRECTOR OF DIGITAL PLATFORMS Communication Comments: Provider notified that patient is on floor squatting and trying to push Datetime: 10/12/2018 20:43 Vaginal Exam Comments: Patient squatting at bedside and starting to push Medication Comments: Nitrous oxide discontinued Datetime: 10/12/2018 20:30 Pattern: Normal: <= 5 Contractions in 10 Minutes Datetime: 10/12/2018 20:25 Patient Care Comments: 200mL emesis Datetime: 10/12/2018 20:15 Frequency (min): 1.5-5 Duration (sec): 50-80 VAGINAL EXAM Dilatation (cm): 4.0 Effacement (%): 90 Station: 2 Exam by: Carol Alvarado RN Vaginal Bleeding: Normal Show Cervix, Consistency: Soft Cervix, Position: Midposition Datetime: 10/12/2018 19:45 Comments: [id number] variable at 1931 Datetime: 10/12/2018 19:00 Respirations: 20 Temperature (C): 36.3 PAIN Pain Scale: 4 Pain Presence: Intermittent Pain Type: Cramping Pain Location: Abdomen Pain Relief Measures: Comfort Measures Pain Coping: Breathing Through Contractions Comfort Measures: Breathing/Relaxation Datetime: 10/12/2018 18:48 I/O Interventions: Up to BR Datetime: 10/12/2018 18:28 Membrane Status: Ruptured Membranes Rupture Method: Artificial Amniotic Fluid Color: Clear Amniotic Fluid Amount: Moderate Amniotic Fluid Odor: Normal Membrane Comments: AROM of forebag Datetime: 10/12/2018 18:20 Stage of : Labor Datetime: 10/12/2018 17:29 Monitor Interventions for UA: [place] Adjusted Datetime: 10/12/2018 16:56 Monitor Interventions for FHR: Ultrasound Adjusted PATIENT CARE IV/Blood Work: IV Saline Locked Datetime: 10/12/2018 16:20 MEDICATIONS Antibiotics: Penicillin IV (Units) @ 2.5 Datetime: 10/12/2018 16:10 Cervical Ripening Agents: Cytotec @ Datetime: 10/12/2018 13:32 Temperature Route: Oral
== END 2018-10-14 13:30 | disposition home or self-care (01) | DRG 807 ==
LOC: WFO 10:33 → FBP 10:36 → WFO 11:01 → FBP 11:02
PROVIDERS: ADMIT Nurse Practitioner Obstetrics & Gynecology; ATTEND Nurse Practitioner Obstetrics & Gynecology
PROC: 10E0XZZ Delivery of Products of Conception, External Approach (ICD-10-PCS; principal; 2018-10-12)
PROC: 10907ZC Drainage of Amniotic Fluid, Therapeutic from Products of Conception, Via Natural or Artificial Opening (ICD-10-PCS; 2018-10-12)
DX: O99.824 Streptococcus B carrier state complicating childbirth (principal); Z37.0 Single live birth; O99.344 Other mental disorders complicating childbirth; F41.9 Anxiety disorder, unspecified; O99.02 Anemia complicating childbirth; O70.0 First degree perineal laceration during delivery; Z3A.39 39 weeks gestation of pregnancy
CPT/HCPCS: 59025; 84112; 85025; A9270; J7120

== ENCOUNTER 2018-11-04 01:09 | Outpatient (CLI) | payer OTHER ==
--- NOTE | 2018-11-04 03:20 | Ultrasound Report ---
Reason: ABNORMAL VAGINAL BLEEDING Procedure Date: 11/04/2018 Accession Number: [id number] / [id number] Procedure: US - Pelvic w/Transvaginal CPT Code: FULL RESULT: EXAM: PELVIC ULTRASOUND EXAM DATE: 11/04/2018 01:17 AM. CLINICAL HISTORY: ABNORMAL VAGINAL BLEEDING. COMPARISON: None. TECHNIQUE: Realtime transabdominal pelvic scan performed to identify the uterus and adnexa and as an overview of other pelvic structures, followed by transvaginal scan to provide greater detail of the uterus and adnexa, with static image documentation. FINDINGS: Uterus: 12.7 x 5.5 x 9.2 cm, volume 337 cc. Anteverted position. There is fluid within the endometrial canal with ill-defined borders. Masses: None. Endometrium: 8.6 mm. Normal. Cervix: Unremarkable. Right Ovary: 4.4 x 2 x 2 cm, volume 9.0 cc. Normal echotexture and blood flow. Left Ovary: 2.8 x 1.4 x 2.3 cm, volume 4.8 cc. Normal echotexture and blood flow. Free Fluid: None. Other: None. IMPRESSION: 1. Fluid/possible blood within the endometrial canal. 2. Unremarkable ovaries. RADIA The call report notification system was initiated by Dr. Amador Brooks at 03:19 AM on 11/04/2018. ADDENDUM: 11/04/18 03:32 The above call report findings were discussed with Catie Judge (?) by Dr. Amador Brooks at 03:32 AM on 11/04/2018.
== END 2018-11-04 01:10 | disposition home or self-care (01) ==
LOC: DI 01:09
PROVIDERS: ATTEND Nurse Practitioner Obstetrics & Gynecology
DX: N93.9 Abnormal uterine and vaginal bleeding, unspecified (principal)
CPT/HCPCS: 76830; 76856

== ENCOUNTER 2018-11-15 14:10 | Outpatient (CLI) | payer OTHER ==
--- NOTE | 2018-11-15 15:37 | Ultrasound Report ---
Reason: ABDOMINAL VAGINAL BLEEDING Procedure Date: 11/15/2018 Accession Number: [id number] / [id number] Procedure: US - Pelvic w/Transvaginal CPT Code: FULL RESULT: EXAM: PELVIC ULTRASOUND EXAM DATE: 11/15/2018 02:54 PM. CLINICAL HISTORY: ABDOMINAL VAGINAL BLEEDING. COMPARISON: PELVIC W/TRANSVAGINAL 11/04/2018 1:17 AM. TECHNIQUE: Realtime transabdominal pelvic scan performed to identify the uterus and adnexa and as an overview of other pelvic structures, followed by transvaginal scan to provide greater detail of the uterus and adnexa, with static image documentation. FINDINGS: Uterus: 8.8 x 5 x 7.3 cm, volume 167 cc. Anteverted position. Normal overall size and echotexture. Masses: None. Endometrium: 3 mm. Trace fluid seen within the endometrial canal Cervix: Unremarkable. Right Ovary: 2.7 x 1.2 x 1.7 cm, volume 2.8 cc. Normal echotexture and blood flow. Left Ovary: 2.2 x 1.1 x 1.4 cm, volume 1.7 cc. Normal echotexture and blood flow. (Left ovary seen transabdominally only). Free Fluid: Trace free fluid Other: None. IMPRESSION: TRace free fluid in the cul-de-sac. No adnexal lesion or ovarian mass. Trace fluid within the endometrial canal. However endometrium is not abnormally thickened. RADIA
== END 2018-11-15 14:11 | disposition home or self-care (01) ==
LOC: DI 14:10
PROVIDERS: ATTEND Nurse Practitioner Obstetrics & Gynecology
DX: N93.9 Abnormal uterine and vaginal bleeding, unspecified (principal); R18.8 Other ascites
CPT/HCPCS: 76830; 76856

== ENCOUNTER 2019-06-13 10:34 | Emergency (ER) | payer OTHER ==
[2019-06-13] MEDS ORDERED: DEXAMETHASONE 10 MG/ML VIAL PO STA (11:15)
[2019-06-13] MEDS ORDERED: IPRATROPIUM/ALBUTEROL 3 ML NEB INH STA (11:15)
[2019-06-13] MEDS ORDERED: CHERRY SYRUP 10 ML UDC PO ONE (11:15)
--- NOTE | 2019-06-13 12:01 | ED Physician Documentation ---
PD HPI DYSPNEA - Stated complaint Stated Complaint: DIFFICULTY BREATHING/FEVER - Chief complaint Chief Complaint: Resp - History obtained from History obtained from: Patient, Friend - History of Present Illness Timing - onset: How many days ago (several) Timing - onset during: Rest Timing - duration: Days Timing - details: Gradual onset, Still present Inciting event(s): URI Improved by: Rest Worsened by: Exertion, Coughing Associated symptoms: Cough, Wheezing Similar symptoms before: Diagnosis (bronchitis) Recently seen: Not recently seen - Additional information Additional information: 23-year-old female with a history of multiple episodes of otitis status post tubes and 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 : None HEENT: None Psych: None Musculoskeletal: None Derm: None - Past Surgical History Past Surgical History: Yes General: Appendectomy HEENT: Myringotomy (tubes), Tonsil/Adenoidectomy - Present Medications Home Medications: Ambulatory Orders Medication Instructions Recorded Confirmed Pnv95/Ferrous Fumarate/FA 1 tab PO DAILY 08/27/14 08/27/14 [ Tablet] Fluticasone [Flonase] 1 sprays PATRICIA BID PRN #1 bottle 04/30/16 HYDROcod/ACETAM 5/325 [[place] 5/325] 1 - 2 ea PO Q6H PRN #15 tablet 04/11/18 Albuterol Sulf [Ventolin Hfa 1 - 2 puffs INH Q4HR PRN #1 inhaler 06/13/19 Inhaler] Azithromycin [Zithromax] 250 mg PO DAILY #6 tablet 06/13/19 Sertraline [Zoloft] 25 mg PO DAILY 06/13/19 06/13/19 - Allergies Allergies/Adverse Reactions: Allergies Allergy/AdvReac Type Severity Reaction Status Date / Time No Known Drug Allergies Allergy Verified 06/13/19 10:39 - Social History Does the pt smoke?: No Smoking Status: Never smoker Does the pt drink ETOH?: No Does the pt have substance abuse?: No - Immunizations Immunizations are current?: Yes - POLST Patient has POLST: No PD ED PE NORMAL - Vitals Vital signs reviewed: Yes (tachy ) - General General: Alert and oriented X 3, No acute distress, Well developed/nourished - HEENT HEENT: Atraumatic, PERRL, EOMI, Other (The right TM is without inflamation and there is a hole in the TM with no drainage. The left is inflamed with distortion of the landmarks. ) - Neck Neck: Supple, no meningeal sign, No bony TTP - Cardiac Cardiac: RRR, No murmur - Respiratory Respiratory: No respiratory distress, Other (diminished breath sounds. 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, No motor deficit, No sensory deficit, Normal speech Eye Opening: Spontaneous Motor: Obeys Commands Verbal: Oriented GCS Score: 15 - Psych Psych: Normal mood, Normal affect Results - Vitals Vitals: Vital Signs - 24 hr 06/13/19 06/13/19 10:36 11:26 Temperature 37.5 C Heart Rate 108 H 84 Respiratory 20 16 Rate Blood Pressure 121/72 O2 Saturation 99 Oxygen O2 Source Room air PD MEDICAL DECISION MAKING - ED course Complexity details: considered differential, d/w patient ED course: 23 y/o female with cough and congestion has OM on exam and she is administered PO decadron and given a duo-neb treatment with some improvement. Departure - Departure Disposition: 01 Home, Self Care Clinical Impression: Otitis media Qualifiers: Otitis media type: suppurative Chronicity: acute Laterality: left Recurrence: not specified as recurrent Spontaneous tympanic membrane rupture: without spontaneous rupture Qualified Code(s): H66.002 - Acute suppurative otitis media without spontaneous rupture of ear drum, left ear Condition: Stable Instructions: ED Otitis Media Acute Adult Follow-Up: MOUNA MCGRAW [Primary Care Provider] - Prescriptions: Albuterol Sulf [Ventolin Hfa Inhaler] 1 - 2 puffs INH Q4HR PRN #1 inhaler PRN Reason: Shortness Of Air/Wheezing Azithromycin [Zithromax] 250 mg PO DAILY #6 tablet
[2019-06-13 12:11] VITALS: BP 120/70
== END 2019-06-13 12:10 | disposition home or self-care (01) ==
LOC: ED 10:34
DX: H66.002 Acute suppurative otitis media without spontaneous rupture of ear drum, left ear (principal)
CPT/HCPCS: 94640; 94664; 99283; 99284; A9270

== ENCOUNTER 2019-08-19 08:43 | Emergency (ER) | payer OTHER ==
[2019-08-19 08:55] VITALS: BP 105/68
--- NOTE | 2019-08-19 10:17 | ED Physician Documentation ---
PD HPI URI - Stated complaint Stated Complaint: NECK PX - Chief complaint Chief Complaint: Heent - History obtained from History obtained from: Patient - History of Present Illness Timing - onset: How many days ago (3) Timing duration: Days (3) Timing details: Gradual onset Pain level max: 4 Pain level now: 4 Associated symptoms: Ear pain (B ear pain, states had a tympanic membrane graft 3 weeks ago.). 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 : None HEENT: None Psych: None Musculoskeletal: None Derm: None - Past Surgical History Past Surgical History: Yes General: Appendectomy HEENT: Myringotomy (tubes), Tonsil/Adenoidectomy - Present Medications Home Medications: Ambulatory Orders Medication Instructions Recorded Confirmed Pnv No.95/Ferrous Fum/Folic AC 1 tab PO DAILY 08/27/14 08/27/14 [ Tablet] Fluticasone [Flonase] 1 sprays PATRICIA BID PRN #1 bottle 04/30/16 HYDROcod/ACETAM 5/325 [[place] 5/325] 1 - 2 ea PO Q6H PRN #15 tablet 04/11/18 Albuterol Sulf [Ventolin Hfa 1 - 2 puffs INH Q4HR PRN #1 inhaler 06/13/19 Inhaler] Azithromycin [Zithromax] 250 mg PO DAILY #6 tablet 06/13/19 Sertraline [Zoloft] 25 mg PO DAILY 06/13/19 06/13/19 Amox/Clav 875/125 [Augmentin] 1 tab PO Q12H #20 tablet 08/19/19 - Allergies Allergies/Adverse Reactions: Allergies Allergy/AdvReac Type Severity Reaction Status Date / Time No Known Drug Allergies Allergy Verified 08/19/19 08:56 - Social History Does the pt smoke?: No Smoking Status: Never smoker Does the pt drink ETOH?: No Does the pt have substance abuse?: No - Immunizations Immunizations are current?: Yes - POLST Patient has POLST: No PD ED PE NORMAL - Vitals Vital signs reviewed: Yes - General General: Alert and oriented X 3, No acute distress, Well developed/nourished - HEENT HEENT: PERRL, Moist mucous membranes, Pharynx benign, Other (Bilateral TM is erythematous, dull, bulging with loss of landmarks. Purulent fluid present.) - Neck Neck: Supple, no meningeal sign - Cardiac Cardiac: RRR, Strong equal pulses - Respiratory Respiratory: No respiratory distress, Clear bilaterally - Abdomen Abdomen: Soft, Non tender, Non distended - Derm Derm: Warm and dry - Neuro Neuro: Alert and oriented X 3 - Psych Psych: Normal mood, Normal affect Results - Vitals Vitals: Vital Signs - 24 hr 08/19/19 08:52 Temperature 36.5 C Heart Rate 88 Respiratory 16 Rate Blood Pressure 105/68 O2 Saturation 98 Oxygen O2 Source Room air PD MEDICAL DECISION MAKING - ED course Complexity details: considered differential, d/w patient ED course: Patient with bilateral acute otitis media. Will place on antibiotics for this. She had recent tympanic membrane surgery as well. Patient is well-appearing, nontoxic. Afebrile. Patient counseled regarding signs and symptoms for which I believe and urgent re-evaluation would be necessary. Patient with good understanding of and agreement to plan and is comfortable going home at this time This document was made in part using voice recognition software. While efforts are made to proofread this document, sound alike and grammatical errors may occur. Departure - Departure Disposition: 01 Home, Self Care Clinical Impression: Otitis media Qualifiers: Otitis media type: suppurative Chronicity: acute Laterality: bilateral Recurrence: not specified as recurrent Spontaneous tympanic membrane rupture: without spontaneous rupture Qualified Code(s): H66.003 - Acute suppurative otitis media without spontaneous rupture of ear drum, bilateral Condition: Good Instructions: ED Otitis Media Acute Adult Follow-Up: MOUNA MCGRAW [Primary Care Provider] - Within 1 week Prescriptions: Amox/Clav 875/125 [Augmentin] 1 tab PO Q12H #20 tablet Comments: Take all antibiotics until gone. Return if you worsen. Follow-up with your doctor for further care. Forms: Activity restrictions Discharge Date/Time: 08/19/19 10:24
[2019-08-19] MEDS: CHERRY SYRUP 10 ML UDC PO ONE (10:21)
[2019-08-19] MEDS: DEXAMETHASONE 10 MG/ML VIAL PO STA (10:21)
== END 2019-08-19 10:24 | disposition home or self-care (01) ==
LOC: ED 08:43
DX: H66.003 Acute suppurative otitis media without spontaneous rupture of ear drum, bilateral (principal); Z98.890 Other specified postprocedural states
CPT/HCPCS: 99282; 99284